=== PATIENT | female | born 1995 | race Caucasian/White ===

== ENCOUNTER 2024-03-08 10:01 | Outpatient (CLI) | payer OTHER, SELFPAY ==
[2024-03-08 10:22] LABS: Basophils # 0.1 10^3/uL (0.0-0.1); Basophils % 1.3 %; Eosinophils # 0.5 10^3/uL (0.0-0.8); Hematocrit 39.1 % (36-47); Mean Corpuscular HGB Conc 32.7 g/dL (30-55); Mean Corpuscular Hemoglobin 29.4 pg (27-33); Mean Corpuscular Volume 89.9 fl (85-98); Mean Platelet Volume 9.2 fL (7.4-10.4); Monocytes # 0.3 10^3/uL (0.2-0.9); Monocytes % 4.4 %; Neutrophils # 3.59 10^3/uL (1.8-7.7); Neutrophils % 56.1 %; Nucleated Red Blood Cells % 0 %; Platelet Count 231 10^3/cmm (157-399); Red Blood Count 4.35 10^6/uL (3.85-5.65); Red Cell Distribution Width 11.8 % (12.1-15.1); White Blood Count 6.39 10^3/uL (3.29-11.43)
[2024-03-08 10:52] LABS: Alanine Aminotransferase 27 U/L (0-33); Albumin Level 4.5 g/dL (3.5-5.2); Alkaline Phosphatase 112 U/L (35-105); Anion Gap 15.2 (5-19); Aspartate Amino Transferase 25 U/L (0-32); Blood Urea Nitrogen 7 mg/dL (6-20); Calcium 9.6 mg/dL (8.5-10.5); Carbon Dioxide 29 mmol/L (22-29); Chloride 104 mmol/L (98-107); Free T4 Free Thyroxine 1.29 ng/dL (0.82-1.77); Globulin 3.1 g/dL (1.3-4.6); Glucose 84 mg/dL (65-115); Osmolality Calculated 295 mOsm/kg (285-295); Potassium 4.2 mmol/L (3.5-5.1); Sodium 144 mmol/L (136-145); Testosterone Total 64.2 ng/dL (8.4-48.1); Total Bilirubin 0.3 mg/dL (0.15-1.2); Total Protein 7.6 g/dL (6.6-8.7)
[2024-03-08 10:58] LABS: Vitamin B12 790 pg/mL (232-1245)
[2024-03-08 10:59] LABS: Folate Level 9.7 ng/mL (4.8-37.3)
[2024-03-08 11:07] LABS: Ferritin 31 ng/mL (15-150); Iron 62 ug/dL (37-145); Percent Saturation 20.6 % (20-50); Total Iron Binding Capacity 300 mcg/dl; Unsaturated Iron Binding 238 ug/dL (112-347)
[2024-03-08 11:24] LABS: 25 Hydroxy Vitamin D 23 ng/mL (30-100)
[2024-03-09 10:50] LABS: Dehydroepiandrosterone Sulfate 139 mcg/dL (14-349)
[2024-03-11 14:50] LABS: Thyroid Peroxidase Antobodies <1 IU/mL (<9)
[2024-03-12 13:40] LABS: Zinc Level, Serum or Plasma 69 mcg/dL (60-130)
[2024-03-12 14:10] LABS: Vit D 1,25 (Oh)2, Total 34 pg/mL (18-72); Vit D2 1,25 (Oh)2 <8 pg/mL; Vit D3 1,25 (Oh)2 34 pg/mL
[2024-03-12 14:25] LABS: Testosterone, Free 5.2 pg/mL (0.2-5.0)
== END 2024-03-08 10:02 | disposition home or self-care (01) ==
LOC: LAB 10:02
PROVIDERS: Visit Provider Nurse Practitioner Family
DX: L65.9 Nonscarring hair loss, unspecified (principal); D22.5 Melanocytic nevi of trunk
CPT/HCPCS: 36415; 80053; 82306; 82607; 82627; 82652; 82728; 82746; 83540; 83550; 84402; 84403; 84439; 84443; 84630; 85025; 86376